=== PATIENT | male | born 1975 | race African-American/Black ===

== ENCOUNTER 2022-07-19 15:00 | Outpatient (CLI) | payer OTHER, SELFPAY | END 2022-07-19 15:01 | disposition home or self-care (01) | LOC: AMB 09-05 09:56 | PROVIDERS: Visit Provider Family Medicine | DX: S89.91XA Unspecified injury of right lower leg, initial encounter (principal); V43.52XA Car driver injured in collision with other type car in traffic accident, initial encounter; Y92.410 Unspecified street and highway as the place of occurrence of the external cause | CPT/HCPCS: A0427 ==